=== PATIENT | male | born 1995 | race Asian ===

== ENCOUNTER 2018-10-01 12:04 | Emergency (ER) | payer OTHER ==
[2018-10-01 12:12] VITALS: BP 123/69
--- NOTE | 2018-10-01 13:28 | EDPHY ---
H & P Stated Complaint: fell on ice and hit head on ice Time Seen by Provider: 10/01/18 13:19 HPI/ROS: CHIEF COMPLAINT: Head injury, headache, nasal drainage HISTORY OF PRESENT ILLNESS: The patient presents the ED after he slipped and fell on the ice. The patient struck the occiput of his head. He is developed a frontal headache and associated dizziness. The patient did have some mild rhinorrhea following his fall. The patient denies any neck pain. He denies any acute numbness or weakness. The patient is not anticoagulated. He has no prior history of concussion. The patient denies additional acute complaints. He currently rates his headache is moderate in nature. REVIEW OF SYSTEMS: A comprehensive 10 point review of systems is otherwise negative aside from elements mentioned in the history of present illness. Source: Patient Exam Limitations: No limitations - Personal History Current Tetanus/Diphtheria Vaccine: Yes Current Tetanus Diphtheria and Acellular Pertussis (TDAP): Yes - Medical/Surgical History Hx Asthma: No Hx Chronic Respiratory Disease: No Hx Diabetes: No Hx Cardiac Disease: No Hx Renal Disease: No Hx Cirrhosis: No Hx Alcoholism: No Hx HIV/AIDS: No Hx Splenectomy or Spleen Trauma: No Other PMH: healthy per pt - Social History Smoking Status: Never smoked - Physical Exam Exam: General Appearance: Alert, no distress Head: Occipital tenderness, small scalp hematoma Eyes: Pupils equal, round, reactive ENT, Mouth: No hemotympanum, no oral trauma, no obvious CSF rhinorrhea Neck: Nontender, trachea midline Respiratory: No chest wall tender, no subcutaneous air, lungs clear bilaterally Cardiovascular: Regular rate and rhythm Abdomen: Abdomen is soft and nontender, pelvis stable Skin: No lacerations, No abrasion Back: No midline T/L/S pain Extremities: Nontender, full range of motion Neurological: A&Ox3, normal motor function, normal sensory exam Constitutional: Initial Vital Signs Heart Rate 74 10/01/18 12:10 Respiratory Rate 18 10/01/18 12:10 Blood Pressure 123/69 H 10/01/18 12:10 O2 Sat (%) 97 10/01/18 12:10 O2 Delivery Mode Room Air Allergies/Adverse Reactions: No Known Allergies Allergy (Unverified 10/01/18 12:11) Home Medications: Medication Instructions Recorded NK [No Known Home Meds] 10/01/18 Medical Decision Making - Diagnostics Imaging Results: Imaging Impressions Head CT 10/01/18 13:26 Impression: 1. No posttraumatic abnormality identified in the brain. 2. Active left maxillary sinus disease. Final concordant results called to Dr. Jose G Franz at 1:42 PM General information for patients regarding this examination can be found at [email or web address]. If you have questions or comments about this report, please contact me at (hospital) or [phone] (cell). ED Course/Re-evaluation: The patient presents to the ED with a frontal headache following a occipital head injury. The patient is noted to be neurologically intact. He did report transient nasal drainage. I appreciate no obvious CSF drainage in the ED. The patient was taken for CT scan of the head to assess for a contrecoup hemorrhage and basilar skull fracture. CT scan demonstrates no evidence of an intracranial hemorrhage or obvious skull fracture. Patient does have evidence of a concussion. The patient will be discharged home with customary concussion aftercare instructions. He is advised to follow up with our on-call neurosurgeon for any persistent clear rhinorrhea. Re-evaluated the patient at 2:00 p.m.. He is neurologically intact and in no acute distress. Differential Diagnosis: Differential diagnosis considered includes intracranial hemorrhage Departure - Departure Disposition: Home, Routine, Self-Care Clinical Impression: Concussion, Rhinorrhea Condition: Good Instructions: Concussion (ED) Additional Instructions: 1. Take Ibuprofen or Motrin 600 mg by mouth three times a day. 2. Your CT scan demonstrates no evidence of a bleed or obvious fracture. 3. Concussion aftercare as directed. You have been given the number of our concussion specialist, Dr. Che, for any ongoing headache or cognitive issues. 4. Please follow up with the neurosurgeon you have been referred to, Dr. Ybarra , if you continue to experience clear nasal drainage. Referrals: Joann Che MD [Medical Doctor] - As per Instructions Carmelita Ybarra MD [Medical Doctor] - As per Instructions
== END 2018-10-01 14:16 | disposition home or self-care (01) ==
LOC: EDBD 12:04
DX: S06.0X9A Concussion with loss of consciousness of unspecified duration, initial encounter (principal); W00.0XXA Fall on same level due to ice and snow, initial encounter